=== PATIENT | male | born 1950 | race African-American/Black ===

== ENCOUNTER → 2017-10-24 | Outpatient (CLI) | payer BC ==
--- NOTE | 2017-10-24 18:21 | RADIOLOGY REPORT (SQ) ---
EXAM DESCRIPTION: MRI CERVICAL SPINE WITHOUT COMPLETED DATE/TIME: 10/24/2017 5:39 pm REASON FOR STUDY: M54.12 RADICULOPATHY, CERVICAL REGION M54.12 RADICULOPATHY, CERVICAL REGION COMPARISON: None. TECHNIQUE: Sagittal and Axial imaging includes T1, T2, STIR and gradient echo sequences. LIMITATIONS: None. FINDINGS: ALIGNMENT: Normal. VERTEBRAE: Intact. BONE MARROW: Normal. No marrow replacement or reactive changes. DISCS: Diffuse decreased T2 weighted intervertebral disc signal throughout the cervical spine HARDWARE: None in the spine. CORD AND BASE OF BRAIN: Normal in size and signal intensity. SOFT TISSUES: No soft tissue masses. C1-C2: No significant spinal stenosis. C2-C3: Mild bilateral foraminal narrowing from facet and uncovertebral hypertrophy. No central steno sis C3-C4: Mild bilateral foraminal narrowing from facet and uncovertebral hypertrophy. Minimal posterio r disc bulging. No central stenosis. C4-C5: Moderate bilateral foraminal narrowing from facet and uncovertebral hypertrophy. Mild diffuse posterior disc bulge and bony spurring partly effaces the ventral thecal sac and abuts the cord with out cord flattening or abnormal intrinsic cord signal. Borderline central canal stenosis. C5-C6: Mild bilateral foraminal narrowing. Minimal posterior disc bulge without significant central canal stenosis C6-C7: No foraminal narrowing. Minimal posterior disc bulge without significant central canal narrow ing C7-T1: No significant spinal stenosis or exit foraminal stenosis. UPPER THORACIC: Incompletely imaged. No significant spinal stenosis or exit foraminal stenosis. OTHER: No other significant finding. IMPRESSION: Degenerative changes most pronounced at C4-5. TECHNICAL DOCUMENTATION: JOB ID: [id number] [employer]- All Rights Reserved Reading location - IP/workstation name: [email or web address]
== END ==
LOC: RAD 16:36
PROVIDERS: ATTEND Internal Medicine
DX: M54.12 Radiculopathy, cervical region (principal)
CPT/HCPCS: 72141

== ENCOUNTER 2017-11-22 20:14 | Observation (INO) | payer MEDICARE, BC ==
[2017-11-22 21:56] LABS: HEMATOCRIT 38.8 % (37.9-51.0); HEMOGLOBIN 12.9 g/dL (13.5-17.0); MEAN CORPUSCULAR HEMOGLOBIN 29.1 pg (27.0-33.4); MEAN CORPUSCULAR HGB CONC 33.3 g/dL (32.0-36.0); MEAN CORPUSCULAR VOLUME 87 fl (80-97); PLATELET COUNT 207 10^3/uL (150-450); RED BLOOD COUNT 4.44 10^6/uL (4.35-5.55); RED CELL DISTRIBUTION WIDTH 14.3 % (11.5-14.0); WHITE BLOOD COUNT 5.6 10^3/uL (4.0-10.5)
[2017-11-22 22:11] LABS: ALANINE AMINOTRANSFERASE 63 U/L (21-72); ALBUMIN 4.7 g/dL (3.5-5.0); ALKALINE PHOSPHATASE 51 U/L (38-126); ANION GAP 13 (5-19); ASPARTATE AMINO TRANSFERASE 50 U/L (17-59); BILIRUBIN,DIRECT 0.4 mg/dL (0.0-0.4); BILIRUBIN,TOTAL 0.7 mg/dL (0.2-1.3); BLOOD UREA NITROGEN 13 mg/dL (7-20); CALCIUM 10.1 mg/dL (8.4-10.2); CARBON DIOXIDE 29 mmol/L (22-30); CHLORIDE 100 mmol/L (98-107); GLUCOSE 99 mg/dL (75-110); POTASSIUM 3.7 mmol/L (3.6-5.0); SODIUM 142.4 mmol/L (137-145)
[2017-11-22] MEDS: DEXTROSE 5%-NORMAL SALINE 1,000 ML IV PRN (22:12)
--- NOTE | 2017-11-22 22:12 | RADIOLOGY REPORT (SQ) ---
EXAM DESCRIPTION: CHEST SINGLE VIEW COMPLETED DATE/TIME: 11/22/2017 10:03 pm REASON FOR STUDY: admission COMPARISON: 05/10/2012 EXAM PARAMETERS: NUMBER OF VIEWS: One view. TECHNIQUE: Single frontal radiographic view of the chest acquired. RADIATION DOSE: NA LIMITATIONS: None. FINDINGS: LUNGS AND PLEURA: No opacities, masses or pneumothorax. No pleural effusion. MEDIASTINUM AND HILAR STRUCTURES: No masses. Contour normal. HEART AND VASCULAR STRUCTURES: Heart normal in size. Normal vasculature. BONES: No acute findings. HARDWARE: None in the chest. OTHER: No other significant finding. IMPRESSION: NO ACUTE RADIOGRAPHIC FINDING IN THE CHEST. TECHNICAL DOCUMENTATION: JOB ID: [id number] [employer]- All Rights Reserved Reading location - IP/workstation name: [email or web address]
[2017-11-22] MEDS ORDERED: (PENDING PHARMACY ID) (Acetaminophen [Tylenol Extra Strength] 500 MG) PO PRN (22:16)
[2017-11-22] MEDS: ACETAMINOPHEN 325 MG TABLET PO PRN (22:18)
[2017-11-22] MEDS ORDERED: DULOXETINE HCL 30 MG CAPSULE.DR PO ONE (23:30)
[2017-11-22] MEDS ORDERED: ASCORBIC ACID 500 MG TABLET PO ONE (23:30)
[2017-11-22] MEDS ORDERED: PREGABALIN 75 MG CAPSULE PO ONE (23:30)
[2017-11-22] MEDS ORDERED: LORATADINE 10 MG TABLET PO ONE (23:30)
--- NOTE | 2017-11-22 23:59 | RADIOLOGY REPORT (SQ) ---
EXAM DESCRIPTION: CT HEAD WITHOUT CLINICAL HISTORY: headache COMPARISON: None available TECHNIQUE: Axial CT of the head obtained from the skull apex to the skull base without contrast. FINDINGS: No acute intracranial hemorrhage identified. No mass, mass effect, shift of the midline, abnormal extra-axial fluid collection or CT evidence of acute ischemic change identified. The ventricular system is unremarkable. No acute abnormalities of the supratentorial white matter, basal ganglia, cerebellum, or brainstem. The visualized paranasal sinuses and the mastoids are clear. No skull fracture identified. Visualized orbits and globes are unremarkable. DLP:1043.77 mGy-cm IMPRESSION: 1. No acute intracranial abnormality identified. This exam was performed according to our departmental dose-optimization program, which includes automated exposure control, adjustment of the mA and/or kV according to patient size and/or use of iterative reconstruction technique.
[2017-11-23 08:52] LABS: APPEARANCE,URINE CLEAR; BILIRUBIN,URINE NEGATIVE (NEGATIVE); COLOR,URINE YELLOW; GLUCOSE, URINE NEGATIVE (NEGATIVE); KETONES,URINE NEGATIVE (NEGATIVE); LEUKOCYTE ESTERASE,URINE TRACE (NEGATIVE); NITRITE,URINE NEGATIVE (NEGATIVE); PROTEIN,URINE NEGATIVE (NEGATIVE); UROBILINOGEN,URINE NEGATIVE mg/dL (<2.0)
[2017-11-23] MEDS: ACETAMINOPHEN 325 MG TABLET PO PRN (09:28)
[2017-11-23] MEDS ORDERED: ASCORBIC ACID 500 MG TABLET PO SCH (10:00)
[2017-11-23] MEDS ORDERED: PREGABALIN 75 MG CAPSULE PO SCH (10:00)
[2017-11-23] MEDS ORDERED: DULOXETINE HCL 30 MG CAPSULE.DR PO SCH (10:00)
[2017-11-23] MEDS ORDERED: LORATADINE 10 MG TABLET PO SCH (10:00)
[2017-11-23] MEDS: DEXTROSE 5%-NORMAL SALINE 1,000 ML IV PRN (11:18)
[2017-11-23 12:56] VITALS: BP 138/86
--- NOTE | 2017-11-23 13:55 | PDOC H&P ---
History of Present Illness Admission Date/PCP: 11/22/17 20:14 VICTORIANO GIBSON MD History of Present Illness: ALECIA BOWLING is a 67 year old male, he has a history of cervical radiculopathy, he came to the office for evaluation of malaise, headache, nausea , anorexia, he denies any fever. He was seen in the office and evaluated, he was admitted directly from the office to the hospital for evaluation of his symptoms. The hemogram, comprehensive metabolic panel, urinalysis was all negative. 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 The headache is most likely from the radiculopathy of the cervical spine, his other symptoms of malaise, anorexia, cannot be explained on the basis of cervical radiculopathy. He was treated with IV fluid , patient is improved from the standpoint of symptoms, he be discharged home today Past Medical History Cardiac Medical History: Reports: Hyperlipidema, Hypertension Pulmonary Medical History: Reports: Asthma - when 19years old GI Medical History: Reports: Gastroesophageal Reflux Disease Musculoskeltal Medical History: Reports: Arthritis Psychiatric Medical History: Reports: Depression Social History Smoking Status: Never Smoker Hx Recreational Drug Use: No Hx Prescription Drug Abuse: No Family History Parental Family History Reviewed: Yes Children Family History Reviewed: Yes Sibling(s) Family History Reviewed.: Yes Medication/Allergy Home Medications: Acetaminophen [Tylenol Extra Strength] 500 mg PO Q6HP PRN 11/22/17 Ascorbic Acid [Vitamin C 500 mg Tablet] 1,000 unit PO DAILY 11/22/17 Cholecalciferol (Vitamin D3) [Vitamin D3 1000 Unit Tablet] 1,000 unit PO DAILY 11/22/17 Duloxetine HCl [Cymbalta] 60 mg PO DAILY 11/22/17 Fexofenadine HCl [Laurie] 180 mg PO DAILY 11/22/17 Lisinopril/Hydrochlorothiazide [Zestoretic 20-12.5 mg Tablet] 1 tab PO DAILY Meloxicam [Mobic] 7.5 mg PO DAILY 11/22/17 Omeprazole 40 mg PO DAILY 11/22/17 Pregabalin [Lyrica 75 mg Capsule] 75 mg PO BID 11/22/17 Allergies/Adverse Reactions: No Known Drug Allergies Allergy (Verified 12/24/11 14:42) Review of Systems Constitutional: ABSENT: chills, fever(s), headache(s), weight gain, weight loss Eyes: ABSENT: visual disturbances Ears: ABSENT: hearing changes Cardiovascular: ABSENT: chest pain, dyspnea on exertion, edema, orthropnea, palpitations Respiratory: ABSENT: cough, hemoptysis Gastrointestinal: ABSENT: abdominal pain, constipation, diarrhea, hematemesis, hematochezia, nausea, vomiting Genitourinary: ABSENT: dysuria, hematuria Musculoskeletal: PRESENT: other - Cervical radiculopathy Integumentary: ABSENT: rash, wounds Neurological: ABSENT: abnormal gait, abnormal speech, confusion, dizziness, focal weakness, syncope Psychiatric: ABSENT: anxiety, depression, homidical ideation, suicidal ideation Endocrine: ABSENT: cold intolerance, heat intolerance, menstrual abnormalities, polydipsia, polyuria Hematologic/Lymphatic: ABSENT: easy bleeding, easy bruising, lymphadenopathy Physical Exam Vital Signs: Temp Pulse Resp BP Pulse Ox 98.4 F 78 18 138/86 H 97 11/23/17 12:00 11/23/17 12:00 11/23/17 12:00 11/23/17 12:00 11/23/17 12:00 Intake & Output 11/22/17 11/23/17 11/24/17 06:59 06:59 06:59 Intake Total 1575 Balance 1575 Weight 116.9 kg General appearance: PRESENT: no acute distress, well-developed, well-nourished Head exam: PRESENT: atraumatic, normocephalic Eye exam: PRESENT: conjunctiva pink, EOMI, PERRLA Ear exam: PRESENT: normal external ear exam Mouth exam: PRESENT: moist, tongue midline Neck exam: PRESENT: full ROM Respiratory exam: PRESENT: clear to auscultation urslua Cardiovascular exam: PRESENT: RRR, +S1, +S2 Pulses: PRESENT: normal dorsalis pedis pul, +2 pedal pulses bilateral Vascular exam: PRESENT: normal capillary refill GI/Abdominal exam: PRESENT: normal bowel sounds, soft Rectal exam: PRESENT: deferred Neurological exam: PRESENT: alert, awake, oriented to person, oriented to place , oriented to time, oriented to situation, CN II-XII grossly intact Psychiatric exam: PRESENT: appropriate affect, normal mood Skin exam: PRESENT: dry, intact, warm Results Laboratory Results: 11/22/17 21:31 11/22/17 21:31 11/22/17 11/22/17 11/23/17 21:31 21:31 08:26 WBC 5.6 RBC 4.44 Hgb 12.9 L Hct 38.8 MCV 87 MCH 29.1 MCHC 33.3 RDW 14.3 H Plt Count 207 Sodium 142.4 Potassium 3.7 Chloride 100 Carbon Dioxide 29 Anion Gap 13 BUN 13 Creatinine 0.99 Est GFR ( Amer) > 60 Est GFR (Non-Af Amer) > 60 Glucose 99 Calcium 10.1 Total Bilirubin 0.7 AST 50 ALT 63 Alkaline Phosphatase 51 Total Protein 8.0 Albumin 4.7 Urine Color YELLOW Urine Appearance CLEAR Urine pH 5.0 Ur Specific [place] 1.010 Urine Protein NEGATIVE Urine Glucose (UA) NEGATIVE Urine Ketones NEGATIVE Urine Blood NEGATIVE Urine Nitrite NEGATIVE Ur Leukocyte Esterase TRACE H Urine WBC (Auto) 5 Urine RBC (Auto) 0 Impressions: Chest X-Ray 11/22/17 00:00 IMPRESSION: NO ACUTE RADIOGRAPHIC FINDING IN THE CHEST. Head CT 11/22/17 00:00 IMPRESSION: 1. No acute intracranial abnormality identified. This exam was performed according to our departmental dose-optimization program, which includes automated exposure control, adjustment of the mA and/or kV according to patient size and/or use of iterative reconstruction technique. Assessment & Plan - Diagnosis (1) Cervical radiculopathy Is this a current diagnosis for this admission?: Yes Plan: He was admitted for observation (2) Headache Qualifiers: Headache type: unspecified Headache chronicity pattern: unspecified pattern Intractability: not intractable Qualified Code(s): R51 - Headache Is this a current diagnosis for this admission?: Yes
--- NOTE | 2017-11-23 14:06 | PDOC DISCHARGE SUMMARY ---
General - Admit/Disc Date/PCP Admission Date/Primary Care Provider: 11/22/17 20:14 VICTORIANO GIBSON MD Discharge Date: 11/23/17 - Discharge Diagnosis (1) Cervical radiculopathy Is this a current diagnosis for this admission?: Yes (2) Headache Is this a current diagnosis for this admission?: Yes - Additional Information Home Medications: Acetaminophen [Tylenol Extra Strength] 500 mg PO Q6HP PRN 11/22/17 Ascorbic Acid [Vitamin C 500 mg Tablet] 1,000 unit PO DAILY 11/22/17 Cholecalciferol (Vitamin D3) [Vitamin D3 1000 Unit Tablet] 1,000 unit PO DAILY 11/22/17 Duloxetine HCl [Cymbalta] 60 mg PO DAILY 11/22/17 Fexofenadine HCl [Laurie] 180 mg PO DAILY 11/22/17 Lisinopril/Hydrochlorothiazide [Zestoretic 20-12.5 mg Tablet] 1 tab PO DAILY Meloxicam [Mobic] 7.5 mg PO DAILY 11/22/17 Omeprazole 40 mg PO DAILY 11/22/17 Pregabalin [Lyrica 75 mg Capsule] 75 mg PO BID 11/22/17 History of Present Illness History of Present Illness: ALECIA BOWLING is a 67 year old male, he has a history of cervical radiculopathy, he came to the office for evaluation of malaise, headache, nausea , anorexia, he denies any fever. He was seen in the office and evaluated, he was admitted directly from the office to the hospital for evaluation of his symptoms. The hemogram, comprehensive metabolic panel, urinalysis was all negative. 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 The headache is most likely from the radiculopathy of the cervical spine, his other symptoms of malaise, anorexia, cannot be explained on the basis of cervical radiculopathy. He was treated with IV fluid , patient is improved from the standpoint of symptoms, he be discharged home today Hospital Course Hospital Course: Patient was admitted for observation and evaluation of symptoms of headache non specific malaise, anorexia ,nausea. CT head was done, it was negative the blood work that was done was normal, he was treated with IV fluid, he be discharge home today Physical Exam Vital Signs: Temp Pulse Resp BP Pulse Ox 98.4 F 78 18 138/86 H 97 11/23/17 12:00 11/23/17 12:00 11/23/17 12:00 11/23/17 12:00 11/23/17 12:00 Intake & Output 11/22/17 11/23/17 11/24/17 06:59 06:59 06:59 Intake Total 1575 Balance 1575 Weight 116.9 kg General appearance: PRESENT: no acute distress, well-developed, well-nourished Head exam: PRESENT: atraumatic, normocephalic Eye exam: PRESENT: conjunctiva pink, EOMI, PERRLA Ear exam: PRESENT: normal external ear exam Mouth exam: PRESENT: moist, tongue midline Neck exam: PRESENT: full ROM Respiratory exam: PRESENT: clear to auscultation ursula Cardiovascular exam: PRESENT: RRR, +S1, +S2 Pulses: PRESENT: normal dorsalis pedis pul, +2 pedal pulses bilateral Vascular exam: PRESENT: normal capillary refill GI/Abdominal exam: PRESENT: soft Rectal exam: PRESENT: deferred Neurological exam: PRESENT: alert Psychiatric exam: PRESENT: appropriate affect, normal mood Skin exam: PRESENT: dry, intact, warm Results Laboratory Results: 11/22/17 21:31 11/22/17 21:31 11/22/17 11/22/17 11/23/17 21:31 21:31 08:26 WBC 5.6 RBC 4.44 Hgb 12.9 L Hct 38.8 MCV 87 MCH 29.1 MCHC 33.3 RDW 14.3 H Plt Count 207 Sodium 142.4 Potassium 3.7 Chloride 100 Carbon Dioxide 29 Anion Gap 13 BUN 13 Creatinine 0.99 Est GFR ( Amer) > 60 Est GFR (Non-Af Amer) > 60 Glucose 99 Calcium 10.1 Total Bilirubin 0.7 AST 50 ALT 63 Alkaline Phosphatase 51 Total Protein 8.0 Albumin 4.7 Urine Color YELLOW Urine Appearance CLEAR Urine pH 5.0 Ur Specific [place] 1.010 Urine Protein NEGATIVE Urine Glucose (UA) NEGATIVE Urine Ketones NEGATIVE Urine Blood NEGATIVE Urine Nitrite NEGATIVE Ur Leukocyte Esterase TRACE H Urine WBC (Auto) 5 Urine RBC (Auto) 0 Impressions: Chest X-Ray 11/22/17 00:00 IMPRESSION: NO ACUTE RADIOGRAPHIC FINDING IN THE CHEST. Head CT 11/22/17 00:00 IMPRESSION: 1. No acute intracranial abnormality identified. This exam was performed according to our departmental dose-optimization program, which includes automated exposure control, adjustment of the mA and/or kV according to patient size and/or use of iterative reconstruction technique. Qualifiers - * PATEINT BEING DISCHARGED WITH ANY OF THE FOLLOWING DIAGNOSIS?: No
== END 2017-11-23 14:30 | disposition home or self-care (01) ==
LOC: 5 20:14 → INTOOBSV 20:14
PROVIDERS: ADMIT Internal Medicine; ATTEND Internal Medicine
DX: M54.12 Radiculopathy, cervical region (principal); R51 Headache; R53.81 Other malaise; R63.0 Anorexia; R11.2 Nausea with vomiting, unspecified; I10 Essential (primary) hypertension; K21.9 Gastro-esophageal reflux disease without esophagitis; Z79.899 Other long term (current) drug therapy; Z88.8 Allergy status to other drugs, medicaments and biological substances; Z68.35 Body mass index [BMI] 35.0-35.9, adult; Z87.11 Personal history of peptic ulcer disease
CPT/HCPCS: 36415; 87040; 87086; 85027; 80076; 80048; 81001; 71045; 70450; G0378 ×2; G0379; A9270 ×5